=== PATIENT | male | born 1955 | race Caucasian/White ===

== ENCOUNTER 2017-11-25 08:42 | Day surgery (SDC) | payer MEDICAID ==
[2017-11-25] MEDS ORDERED: Lactated Ringer's 1,000 ML IV ONE (09:29)
[2017-11-25 10:10] VITALS: TEMP 97.7
[2017-11-25] MEDS ORDERED: Propofol 10 mg/ml Inj (20 ML) ONE (11:09)
[2017-11-25 11:51] VITALS: BP 100/77; PULSE 62; RESP 16; O2SAT 99
== END 2017-11-25 12:24 | disposition home or self-care (01) ==
LOC: H.ENDO 08:42
PROVIDERS: ATTEND Internal Medicine Gastroenterology
DX: Z12.11 Encounter for screening for malignant neoplasm of colon (principal); E78.5 Hyperlipidemia, unspecified; K64.8 Other hemorrhoids; Z98.0 Intestinal bypass and anastomosis status; K57.30 Diverticulosis of large intestine without perforation or abscess without bleeding; E05.90 Thyrotoxicosis, unspecified without thyrotoxic crisis or storm
CPT/HCPCS: 45380; 88305; J2001; J2704; J7120

== ENCOUNTER 2018-06-28 18:01 | Emergency (ER) | payer MEDICAID ==
[2018-06-28 18:13] VITALS: RESP 16; TEMP 97.8
--- NOTE | 2018-06-28 18:56 | ED PDOC ---
HPI: Chest Pain Time Seen by Provider: 06/28/18 18:18 Chief Complaint (Nursing): Chest Pain Chief Complaint (Provider): Chest Pain History Per: Patient History/Exam Limitations: no limitations Onset/Duration Of Symptoms: Days (x5) Current Symptoms Are (Timing): Still Present Additional Complaint(s): 62 y/o male with a PMHx of hypothyroidism presents to the the ED for evaluation of mid-sternal chest pain and back pain for five days. Patient reports chest pain is constant and worsens with coughing. Patient states cough is productive with minimal yellow sputum. Denies fever and shortness of breath. PMD: Carlton Restrepo Past Medical History Reviewed: Historical Data, Nursing Documentation, Vital Signs Vital Signs: Last Vital Signs Temp 97.8 F 06/28/18 18:13 Pulse 68 06/28/18 18:13 Resp 16 06/28/18 18:13 BP 135/87 06/28/18 18:24 Pulse Ox 100 06/28/18 18:13 - Medical History PMH: Diverticulitis, Hypercholesterolemia, Hyperthyroidism, Hypothyroidism, Obstructive Bowel (September 2016) Denies: Chronic Kidney Disease - Surgical History Surgical History: No Surg Hx - Family History Family History: States: Unknown Family Hx - Social History Current smoker - smoking cessation education provided: No Alcohol: None - Home Medications Home Medications: Ambulatory Orders Medication Instructions Recorded Levothyroxine [Synthroid] 100 mcg PO DAILY 07/29/16 Naproxen [Naprosyn] 500 mg PO BID PRN #15 tablet 06/28/18 - Allergies Allergies/Adverse Reactions: Allergies Allergy/AdvReac Type Severity Reaction Status Date / Time No Known Allergies Allergy Verified 11/25/17 09:33 KAREN Risk Score for UA/NSTEMI - KAREN Risk Score Age > 64: NO 3 or more CAD Risk Factors: NO Known CAD (Stenosis greater than 50%): NO Aspirin use in past 7 days: NO Severe Angina: NO EKG ST changes greater than 0.5mm: NO Positive Cardiac Marker: NO KAREN Score: 0 Risk %: 5% Review of Systems ROS Statement: Except As Marked, All Systems Reviewed And Found Negative Constitutional: Negative for: Fever Cardiovascular: Positive for: Chest Pain Respiratory: Positive for: Cough. Negative for: Shortness of Breath Musculoskeletal: Positive for: Back Pain Physical Exam - Reviewed Nursing Documentation Reviewed: Yes Vital Signs Reviewed: Yes - Physical Exam Appears: Positive for: No Acute Distress Head Exam: Positive for: ATRAUMATIC, NORMOCEPHALIC Skin: Positive for: Normal Color, Warm, Dry Eye Exam: Positive for: Normal appearance, EOMI, PERRL Neck: Positive for: Normal, Painless ROM Cardiovascular/Chest: Positive for: Regular Rate, Rhythm. Negative for: Chest Non Tender (Mid-Sternal chest tenderness to palpation), Murmur Respiratory: Positive for: Normal Breath Sounds. Negative for: Respiratory Distress Gastrointestinal/Abdominal: Positive for: Normal Exam, Soft. Negative for: Tenderness Back: Positive for: Normal Inspection. Negative for: L CVA Tenderness, R CVA Tenderness Extremity: Positive for: Normal ROM. Negative for: Pedal Edema, Deformity Neurologic/Psych: Positive for: Alert, Oriented. Negative for: Motor/Sensory Deficits - Laboratory Results Result Diagrams: 06/28/18 18:59 06/28/18 18:59 - ECG Interpretation Of ECG: NSR @ 61, no ST-T changes. O2 Sat by Pulse Oximetry: 100 (RA) Pulse Ox Interpretation: Normal Medical Decision Making Medical Decision Making: Time: 190 Impression: Chest Pain Plan: -- EKG -- CMP -- Troponin I -- CBC with differentials -- D Dimer -- PTT -- Prothrombin Time -- CXR Two Views -- Motrin [address] ANGIO CHEST RESULTS FINDINGS: PULMONARY ARTERIES A PULMONARY EMBOLISM IS NOT IDENTIFIED AORTA There is no evidence for aneurysm or dissection of the thoracic aorta. LUNGS NO INFILTRATES OR PULMONARY PARENCHYMAL MASSES PLEURAL SPACES NO PLEURAL EFFUSIONS. HEART Heart size is within normal limits. No significant pericardial effusion. LYMPH NODES No lymphadenopathy is evident. BONES No focal osseous abnormality or acute fracture. UPPER ABDOMEN Images of the upper abdomen are unremarkable. IMPRESSION: 1. A PULMONARY EMBOLISM IS NOT IDENTIFIED 2. NO INFILTRATES OR PULMONARY PARENCHYMAL MASSES 3. NO PLEURAL EFFUSIONS. Electronically signed on Jun 28, 2018 10:16:53 PM EST by: Nghia Urbina M.D., Certified by [employer]BR Scribe Attestation: Documented by Sabine Avilez, acting as a scribe for Shayy Echeverria MD. Provider Scribe Attestation: All medical record entries made by the Scribe were at my direction and personally dictated by me. I have reviewed the chart and agree that the record accurately reflects my personal performance of the history, physical exam, medical decision making, and the department course for this patient. I have also personally directed, reviewed, and agree with the discharge instructions and disposition. Disposition - Clinical Impression Clinical Impression: Atypical chest pain - Disposition Referrals: Carlton Restrepo MD [Primary Care Provider] - Disposition: Routine/Home Disposition Time: 23:11 Condition: STABLE Prescriptions: Naproxen [Naprosyn] 500 mg PO BID PRN #15 tablet PRN Reason: Pain, Moderate (4-7) Instructions: Costochondritis, Chest Pain Forms: [employer] (Gabonese) Print Language: KHMER Addendum Addendum: 06/30/18 14:38 Allisonalex Crowe called patient and left message to see if he was feeling better. Also called daughter Gama who states her father is feeling better, has yet to follow-up with PMD, stressed importance of follow-up.
[2018-06-28 19:05] LABS: BASO # 0.1 K/uL (0.0-0.2); BASO % 0.7 % (0.0-2.0); EOS # 0.7 K/uL (0.0-0.7); EOS % 6.5 % (0.0-4.0); HEMOGLOBIN 13.3 g/dL (12.0-18.0); LYMPH # 2.3 K/uL (1.0-4.3); LYMPH % 22.8 % (20.0-40.0); MEAN CELL VOLUME 89.2 fl (80.0-94.0); MEAN CORPUSCULAR HEMOGLOBIN 29.6 pg (27.0-31.0); MEAN CORPUSCULAR HGB CONC 33.2 g/dL (33.0-37.0); MEAN PLATELET VOLUME 7.9 fl (7.2-11.7); MONO # 0.8 K/uL (0.0-0.8); MONO % 7.8 % (0.0-10.0); NEUT # 6.3 K/uL (1.8-7.0); NEUT % 62.2 % (50.0-75.0); RBC 4.48 Mil/uL (4.40-5.90); RED CELL DISTRIBUTION WIDTH 13.1 % (11.5-14.5); WHITE BLOOD COUNT 10.1 K/uL (4.8-10.8)
[2018-06-28 19:17] LABS: ALBUMIN 4.5 g/dL (3.5-5.0); ALT/SGPT 73 U/L (21-72); AST/SGOT 75 U/L (17-59); BLOOD UREA NITROGEN 14 mg/dl (9-20); CALCIUM 9.5 mg/dL (8.4-10.2); GFR NON-AFRICAN AMERICAN > 60
[2018-06-28 19:20] LABS: PROTHROMBIN TIME 11.2 Seconds (9.8-13.1)
[2018-06-28 19:23] LABS: PARTIAL THROMBOPLASTIN TIME 34.5 Seconds (25.6-37.1)
[2018-06-28] MEDS ORDERED: Iodixanol 320 MG/ML 100 ML BOTTLE IV ONE (21:08)
[2018-06-28] MEDS ORDERED: Sodium Chloride 0.9% 50 ML IV ONE (21:08)
[2018-06-29 00:01] VITALS: BP 133/68; PULSE 79
--- NOTE | 2018-06-29 07:02 | CARD ---
APPROVED REPORT Date of service: 06/28/2018 EKG Measurement Heart [id number] <Conclusion> Normal sinus rhythm Normal ECG
--- NOTE | 2018-06-29 08:54 | RAD ---
Date of service: 06/28/2018 HISTORY: Chest pain COMPARISON: 04/06/2011 TECHNIQUE: Chest PA and lateral FINDINGS: LINES AND TUBES: None. LUNG AND PLEURA: The lungs are well inflated and clear. No pleural effusion or pneumothorax. HEART AND MEDIASTINUM: The heart is not enlarged. No aortic atherosclerotic calcification present. The hilar and mediastinal contours are within normal limits. SKELETAL STRUCTURES: The bony structures are within normal limits for the patient's age. VISUALIZED UPPER ABDOMEN: Normal. OTHER FINDINGS: None. IMPRESSION: No active pulmonary disease.
--- NOTE | 2018-06-29 11:21 | CT ---
Date of service: 06/28/2018 PROCEDURE: CT Chest with contrast (Pulmonary Angiogram) HISTORY: Pleuritic CP COMPARISON: None available. TECHNIQUE: Axial computed tomography images were obtained of the chest in the pulmonary arterial phase of enhancement. Coronal and sagittal reformatted images were created and reviewed. Intravenous contrast dose: 90 cc Omnipaque 320 Radiation dose: Total exam DLP = 363.99 mGy-cm. This CT exam was performed using one or more of the following dose reduction techniques: Automated exposure control, adjustment of the mA and/or kV according to patient size, and/or use of iterative reconstruction technique. FINDINGS: PULMONARY ARTERIES: There are no filling defects in the pulmonary arteries to suggest acute pulmonary embolism. AORTA: No acute findings. No thoracic aortic aneurysm. No aortic atherosclerotic calcification or mural plaque present. LUNGS: The lungs are well inflated and clear. There is dependent atelectasis in the posterior lungs. No nodule, mass or pulmonary consolidation. PLEURAL SPACES: No effusion or pneumothorax. HEART: No cardiomegaly. No significant pericardial effusion. LYMPH NODES: No pathologic mediastinal or hilar lymphadenopathy. BONES, CHEST WALL: Within normal limits for the patient's age. No fracture or destructive lesion OTHER FINDINGS: None. IMPRESSION: No CT evidence for acute pulmonary embolism. Clear lungs. A preliminary report was provided by [id number].
[2018-06-30 14:34] VITALS: O2SAT 100
== END 2018-06-28 23:40 | disposition home or self-care (01) ==
LOC: H.ER 18:01 → SUPCPDRO 18:01 → H.ER 23:40
DX: R07.89 Other chest pain (principal); E03.9 Hypothyroidism, unspecified; E05.90 Thyrotoxicosis, unspecified without thyrotoxic crisis or storm; E78.00 Pure hypercholesterolemia, unspecified
CPT/HCPCS: 71046; 71275; 80053; 84484; 85025; 85378; 85610; 85730; 93005; 99284; Q9967